=== PATIENT | male | born 1945 | race Caucasian/White ===

== ENCOUNTER 2018-03-27 06:57 | Day surgery (SDC) | payer MEDICARE ==
--- NOTE | 2018-03-24 17:13 | HP ---
CC: Dr. Adam; Dr. Loza * ADMISSION HISTORY AND PHYSICAL: DATE OF SURGERY/ADMISSION: 03/27/18 ATTENDING SURGEON: Tonny Jennings MD * (DICTATED BY SHELLI BAZZI) CHIEF COMPLAINT: Left inguinal hernia. HISTORY OF PRESENT ILLNESS: This is a 72-year-old patient referred by Dr. Adam for evaluation of a left inguinal hernia. The patient first noted some left groin swelling in November of this year. It seems to wax and wane, but particularly increased in relation to activity. He has occasional discomfort in the left groin, but nothing to suggest incarceration or strangulation. He has had some intermittent crampy abdominal pain at times, which is not clearly related to the hernia. He was seen by Dr. Adam in early February for one of these episodes. His lab work at that time showed a normal CBC, sed rate, and CRP. KUB of the abdomen showed moderate stools, but otherwise no abnormalities. He has had a couple of minor short-lived recurrences since then. He does have diverticulosis by prior CT. He was seen in the office by Dr. Jennings on 12/17/17, at which time exam confirmed the presence of a reducible nontender left inguinal hernia. There is no hernia noted on the right. Testes were described as normal. Dr. Jennings discussed with him the indications for repair, the methods thereof, the risks, benefits, and alternatives. The patient would like to proceed as scheduled with open repair of left inguinal hernia with mesh. PAST MEDICAL HISTORY: Osteoarthritis, low back pain, BPH, GERD, hypertension, type 2 diabetes, hyperlipidemia, obstructive sleep apnea (on CPAP). He has had 2 prior episodes of pericarditis, but no problems in recent years. PAST SURGICAL HISTORY: Previous surgeries include posterior cervical decompression, right knee meniscal repair, tonsillectomy remotely, ligation and stripping varicose veins in the left lower extremity. No surgical or anesthesia complications. CURRENT MEDICATIONS: 1. Invokana 100 mg once daily. 2. Lisinopril-hydrochlorothiazide 10-12.5 once daily. 3. Lansoprazole 30 mg once daily. 4. Atorvastatin 20 mg once daily. 5. Terazosin 5 mg and 2 mg 1 tablet each for a total of 7 mg once daily. 6. Viagra p.r.n. 7. Multivitamin once daily. 8. Glucosamine daily. DRUG ALLERGIES: AUGMENTIN (nausea), SULFA (unknown childhood reaction). FAMILY HISTORY: Negative for anesthesia problems, bleeding or clotting disorders. SOCIAL HISTORY: The patient is . 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 He is fairly active. He was a former smoker of 1 pack per week and quite at age 40. He drinks on average 2 drinks per day. He denies other recreational drug use. REVIEW OF SYSTEMS: General: No recent constitutional symptoms or acute illnesses. HEENT: No problems reported. Cardiovascular: No chest pain, palpitations, history of heart murmur. Respiratory: No history of asthma, chronic cough, or shortness of breath. GI: No problems reported. Colonoscopy done in 2013. : He is followed by Dr. Loza twice yearly and is treated for BPH. No additional problems reported. Endocrine: Type 2 diabetes. No history of thyroid dysfunction. Remainder of review of systems is negative. PHYSICAL EXAMINATION GENERAL: Well-nourished, well-developed male, in no acute distress. VITAL SIGNS: Height 67 inches, weight 193 pounds. Blood pressure 110/60, pulse 60, respirations 16. HEENT: Pupils are equal and round, reactive. EOMs intact. No conjunctival pallor. Oropharynx: Teeth in good repair. No intraoral lesions. NECK: No lymphadenopathy, thyromegaly, or masses. LUNGS: Clear to auscultation. No rales or wheezes. HEART: Regular rate and rhythm. No murmur noted. ABDOMEN: Soft, nontender to palpation. No palpable masses or organomegaly. Left inguinal hernia as per Dr. Jennings's exam. GENITALIA: There is some asymmetry between the testes, left larger than right, but without any discrete nodules or masses. The patient was not aware of any change. RECTAL: Not done. BACK: No spinous process or CVA tenderness. EXTREMITIES: No edema. NEUROLOGICAL: Grossly intact. SKIN: Warm and dry. No suspicious rashes or lesions noted. IMPRESSION: Left inguinal hernia. PLAN: Open repair left inguinal hernia with mesh. SHELLI BAZZI [id number]/[facility] #: [id number] [facility] CENTERMavis
[~2018-03-27 06:57] MED LIST: Acetaminophen TAB* 325 MG PO ONE; Buffered Lidocaine 0.9% SYRIN* 5 ML/SYR SYRINGE INTRADERM ONE; Gabapentin CAP(*) 300 MG PO ONE
[2018-03-27] MEDS ORDERED: Acetaminophen TAB* 325 MG ONE (07:35)
[2018-03-27] MEDS ORDERED: Gabapentin CAP(*) 300 MG ONE (07:35)
[2018-03-27] MEDS ORDERED: Morphine VIAL* 10 MG/ML 1 ML VIAL ONE ×2 (07:35→08:12)
[2018-03-27] MEDS ORDERED: ceFAZolin 2 GM PREMIX in ORs 2 GM/50 ML BAG IVPB ONE (07:35)
[2018-03-27] MEDS ORDERED: PROCHLORPERAZINE INJ 5 MG/ML 2 ML VIAL IV PRN (08:01)
[2018-03-27] MEDS ORDERED: Levalbuterol 0.63MG/3ML NEB* UNIT OF USE INH PRN (08:01)
[2018-03-27] MEDS ORDERED: Naloxone* 0.4 MG/ML 1 ML VIAL IV PRN (08:01)
[2018-03-27] MEDS ORDERED: fentaNYL* 50 MCG/ML 2 ML VIAL (100 MCG VIAL) IV PRN (08:01)
[2018-03-27] MEDS ORDERED: HYDROcodone/ACETAMIN 5-325 MG* 1 TAB PO PRN (08:01)
[2018-03-27] MEDS ORDERED: DiMENhydriNATE IV* 50 MG/ML VIAL IV PUSH PRN (08:01)
[2018-03-27] MEDS ORDERED: Ondansetron INJ* 2 MG/ML VIAL IV PRN (08:01)
[2018-03-27] MEDS ORDERED: Famotidine IV* 10 MG/ML 2 ML (20 mg) ONE (08:16)
[2018-03-27] MEDS ORDERED: fentaNYL* 50 MCG/ML 2 ML VIAL (100 MCG VIAL) ONE (08:16)
[2018-03-27] MEDS ORDERED: Midazolam* 1 MG/ML 2 ML VIAL (2 MG) ONE (08:16)
[2018-03-27] MEDS ORDERED: Lidocaine 1% INJ* 10 MG/ML 30 ML SDV ONE (09:21)
[2018-03-27] MEDS ORDERED: Bupivacaine 0.5% PF 10 ML VIAL INJ ONE (09:21)
[2018-03-27] MEDS ORDERED: Bupivacaine 0.5% W/EPI SDV* 30 ML VIAL ONE (09:22)
[2018-03-27] MEDS ORDERED: diPHENhydraMINE IV* 50 MG/ML 1 ml VIAL (BENADRYL) ONE (09:22)
[2018-03-27] MEDS ORDERED: KETAMINE HCL* 50 MG/ML 10 ML VIAL ONE (09:22)
[2018-03-27] MEDS ORDERED: Propofol* 10 MG/ML 20 ML BTL ONE (09:44)
[2018-03-27] MEDS ORDERED: Dexamethasone IV* 4 MG/ML 1 ML (4 MG) ONE (09:44)
[2018-03-27 10:56] VITALS: BP 130/67
--- NOTE | 2018-03-27 11:18 | OP ---
CC: Dr. Jennings; Dr. Adam; Dr. Loza. OPERATIVE REPORT: DATE OF OPERATION: 03/27/18 DATE OF : 47 SURGEON: Tonny Jennings MD. DESIGNER AND PATTERNMAKER: None. ANESTHESIOLOGIST: Dr. Hart. ANESTHESIA: LMAC anesthesia. PRE-OP DIAGNOSIS: Left inguinal hernia. POST-OP DIAGNOSIS: Left inguinal hernia. OPERATIVE PROCEDURE: Open repair left inguinal hernia with mesh. DESCRIPTION OF PROCEDURE: The patient was supine on the operative table. After adequate intravenous sedation, compression stockings, Carole Hugger warmer, and intravenous antibiotics, the left groin was clipped and prepped with antiseptic and draped in a sterile fashion. Local infiltrative of anesthes ia was administered and approximately a 2.5-inch incision was created, dissection carried down to the external oblique, which was opened in the direction of its fibers. Cord structures were encircled w ith a Jitendra drain, tented upward. There was fairly large indirect sac, which was dissected free fr om the cord structures and reduced. The cone mesh plug was placed in the internal ring, sutured ther e with 2-0 Vicryls. A second piece of mesh was placed over the inguinal floor, sutured at the tuberc le, tails were split, brought around the cord structures and tacked down laterally. External oblique was closed over top with 2-0 Vicryls, Neville's with 3-0 Vicryl, skin with 4-0 Prolene followed by corrine rile dressing. He tolerated the procedure well, was awakened and brought to Recovery in good conditi on. No complications. No drains. No pathologic specimens. Sponge, instrument counts correct. Sheree mated blood loss less than 10 mL. [id number]/[facility] #: [id number]
== END 2018-03-27 11:12 | disposition home or self-care (01) ==
LOC: OR 06:57
PROVIDERS: ATTEND Surgery
DX: K40.90 Unilateral inguinal hernia, without obstruction or gangrene, not specified as recurrent (principal); G47.33 Obstructive sleep apnea (adult) (pediatric); E11.9 Type 2 diabetes mellitus without complications; I10 Essential (primary) hypertension; K21.9 Gastro-esophageal reflux disease without esophagitis; Z79.84 Long term (current) use of oral hypoglycemic drugs
CPT/HCPCS: A9270-GY; C1781; J0690; J1100; J1200; J2250; J2270; J2704; J3010

== ENCOUNTER 2019-05-25 09:30 | Day surgery (SDC) | payer MEDICARE ==
[~2019-05-25 09:30] MED LIST changes: -Acetaminophen TAB* 325 MG PO ONE; -Buffered Lidocaine 0.9% SYRIN* 5 ML/SYR SYRINGE INTRADERM ONE; +Buffered Lidocaine 1% SYRIN* 1 ML/SYRINGE INTRADERM ONE; +Famotidine IV* 10 MG/ML 2 ML (20 mg) IV ONE; -Gabapentin CAP(*) 300 MG PO ONE; +Lactated Ringers 1000 ML Bag* 1,000 ML IV SCH
[2019-05-25] MEDS ORDERED: ceFAZolin 2 GM PREMIX in ORs 2 GM/50 ML BAG ONE (10:05)
[2019-05-25] MEDS ORDERED: Famotidine IV* 10 MG/ML 2 ML (20 mg) ONE (10:05)
[2019-05-25] MEDS ORDERED: Midazolam* 1 MG/ML 5 ML VIAL (5 MG) ONE (10:49)
[2019-05-25] MEDS ORDERED: Bupivacaine 0.25% SDV* 30 ML ONE (11:11)
[2019-05-25] MEDS ORDERED: fentaNYL* 50 MCG/ML 2 ML VIAL (100 MCG VIAL) ONE (11:57)
[2019-05-25] MEDS ORDERED: Propofol* 10 MG/ML 20 ML BTL ONE (12:30)
[2019-05-25] MEDS ORDERED: Dexamethasone IV* 4 MG/ML 1 ML (4 MG) ONE (12:30)
[2019-05-25] MEDS ORDERED: Ketorolac INJ* 30 MG/ML 1 ML VIAL ONE (12:30)
[2019-05-25] MEDS ORDERED: Ondansetron INJ* 2 MG/ML VIAL ONE (12:30)
[2019-05-25] MEDS ORDERED: Lidocaine 2% PF * 5 ML VIAL ONE (12:30)
[2019-05-25] MEDS ORDERED: Glycopyrrolate IV* 0.2 MG/ML 1 ML VIAL ONE (12:30)
[2019-05-25] MEDS ORDERED: Atropine 1MG/ML INJ* 1 ML VIAL ONE (12:57)
[2019-05-25] MEDS ORDERED: EPHEDrine (Pressors)* 50 MG/ML VIAL ONE (12:57)
[2019-05-25] MEDS ORDERED: Acetaminophen TAB* 325 MG PO PRN (14:01)
[2019-05-25] MEDS ORDERED: Naloxone* 0.4 MG/ML 1 ML VIAL IV PRN (14:01)
[2019-05-25] MEDS ORDERED: oxyCODONE TAB* 5 MG TAB ONE (14:13)
[2019-05-25] MEDS ORDERED: Acetaminophen TAB* 325 MG ONE (14:13)
[2019-05-25] MEDS: oxyCODONE TAB* 5 MG TAB PO PRN ×2 (14:15→14:16)
[2019-05-25] MEDS ORDERED: DiMENhydriNATE IV* 50 MG/ML VIAL ONE (15:21)
[2019-05-25 16:22] VITALS: BP 126/70
--- NOTE | 2019-05-25 21:02 | CONS ---
CC: Dr. Esau Adam * CONSULTATION REPORT: DATE OF CONSULT: 05/25/19 INDICATION FOR CONSULTATION: Bradycardia in the postop area. HISTORY OF PRESENT ILLNESS: The patient is a 74-year-old gentleman with a history of hypertension, sleep apnea, BPH, gastroesophageal reflux disease, hyperlipidemia, type 2 diabetes, who came to the hospital for a hand surgery. The patient was evaluated preop by Jaret Allen NP. At that time, he had an EKG , which showed sinus bradycardia at 50 beats per minute, but he did not have any cardiac symptoms. The patient was brought to the operating room by Dr. Mooney. His initial telemetry strip showed sinus bradycardia at 40 beats per minute. During the surgery, he did have an episode of heart rate of 35 beats per minute that appeared to be junctional. There was no evidence of P waves on the telemetry strip. In the recovery area, the patient had a telemetry strip showed normal sinus rhythm at 50 beats per minute. During the procedure, the patient had no other problems. His blood pressure was stable throughout. The surgery was successful and had no problems. The patient was stable in the recovery area where I was asked to see the patient. I was then able to have a conversation with the patient as he had just had anesthesia and was unable to answer any significant questions. In reviewing his notes in the office computer , there was no evidence of episodes of syncope or near syncope. PAST MEDICAL HISTORY: Again significant for sleep apnea, BPH, low back pain, gastroesophageal reflux disease, hypertension, diabetes. PAST SURGICAL HISTORY: Cervical spine surgery, tonsillectomy, knee surgery. OUTPATIENT MEDICATIONS: 1. CPAP machine. 2. Invokana 100 mg daily. 3. Lisinopril/hydrochlorothiazide 10/12.5 mg a day. 4. Lansoprazole 30 mg a day. 5. Atorvastatin 20 mg a day. 6. Viagra 50 mg as needed. 7. Terazosin 7 mg a day. 8. Multivitamin a day. ALLERGIES: AUGMENTIN and SULFA MEDICATIONS. FAMILY HISTORY: Father of suicide. Mother of interstitial lung disease. One sister of pulmonary fibrosis. SOCIAL HISTORY: He is retired. He is a former smoker, he quit at the age 40. Rare alcohol intake. He tries to exercise regularly with walking. REVIEW OF SYSTEMS: Review of systems could not be done as the patient was just coming out of anesthesia. PHYSICAL EXAM: Height is 5 feet 9 inches, weight is 201 pounds, temperature 97.9, heart rate is 40, blood pressure 130/75, respiratory rate is 16, oxygen saturation 97% on room air. Sclerae anicteric. Oropharynx is pink without erythema. Carotids are 2+ without bruits. JVD is normal. Thyroid is normal. Cardiac Exam: S1, S2 without any murmurs, rubs or gallops. Lungs are clear to auscultation bilaterally. There is no dullness to percussion. Abdomen is soft , nontender, nondistended with normoactive bowel sounds. Extremities show minimal edema. He has 2+ pulses throughout. The patient is awake, alert, but unable to answer questions as he is postanesthesia. DIAGNOSTIC STUDIES/LAB DATA: Again, telemetry in the recovery area showed a sinus rhythm at 50 beats per minute. Again, an EKG from 05/04/19 showed normal sinus rhythm at 50 beats per minute otherwise unremarkable. Laboratory studies from November 2018 shows chemistry is within normal limits. BUN 13, creatinine 0.7. AST and ALT are normal. Total cholesterol 168. LDL cholesterol 102. CBC within normal limits. IMPRESSION: The patient is a 74-year-old gentleman with a history of hypertension, diabetes, sleep apnea, who came to hospital because of hand surgery. During the surgery, he did have bradycardia down to 30 beats per minute. He did not have any symptoms. His blood pressure was stable throughout. The patient did have a cardiac catheterization in 2006, which showed normal coronary arteries and normal left ventricular function. PLAN/RECOMMENDATIONS: For now, my recommendation is that the patient continue with his recovery. I do not think any cardiac testing is necessary at this time. The patient does not have any documented symptoms of bradycardia and no episodes of syncope. I will see the patient in followup as an outpatient, perhaps I will get an echocardiogram and a 30 day monitor to evaluate for bradycardia. I do not think any medication changes are necessary. [id number]/[facility] #: [id number] MTDD
--- NOTE | 2019-05-26 03:15 | OP ---
DATE OF OPERATION: 05/25/19 - [facility] DATE OF : 47 SURGEON: Stan Mock MD FISCAL ACCOUNTING CLERK: SHELLI Cano ANESTHESIOLOGIST: Dr. Mooney. ANESTHESIA: General. PRE-OP DIAGNOSES: 1. 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 2. Hyperextension laxity right thumb metacarpophalangeal joint at about 60 degrees of hyperextension. POST-OP DIAGNOSES: 1. 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 2. Hyperextension laxity right thumb metacarpophalangeal joint at about 60 degrees of hyperextension. OPERATIVE PROCEDURE: 1. Right thumb carpometacarpal arthroplasty with trapeziectomy. 2. Distally based flexor carpi radialis tendon transfer for thumb suspension and tendon interposition. 3. Right thumb metacarpophalangeal joint volar capsulodesis. INDICATIONS: Mr. Salas has severe end-stage arthritis. He has MCP joint hyperextension laxity. The thumb is very painful. We talked about treatment options, risks and benefits. He wanted to proceed with surgery. ESTIMATED BLOOD LOSS: 2 mL. COMPLICATIONS: None. FINDINGS: See above and below. DESCRIPTION OF PROCEDURE: Mr. Salas was seen in the preoperative holding area. The correct side, site, and procedure were identified. We came back to the operating room. The arm was prepped and draped in the usual fashion and time -out was performed. The arm was exsanguinated with the Esmarch and the tourniquet was inflated. I made a 2-to 3-cm incision over the dorsal radial aspect of the thumb metacarpal base and CMC joint. Dissection was carried down. The radial artery was mobilized and protected. Subperiosteal and capsular flaps were raised to expose the trapezium. The margins of the trapezium were released in piecemeal fashion. I then examined the scaphotrapezoid joint, that looked okay. I did take some time as able to free up the interval between the first and second metacarpal base. I then went ahead and made a bone tunnel from the dorsal radial metacarpal base extending out the volar ulnar articular surface. I then turned my attention to the tendon transfer. I made three 1 cm transverse incisions over the FCR tendon sheath, first is proximal to the wrist flexion crease, each proximal incision was made about 7 or 8 cm proximal to the left. The sheath was released underneath the skin. The tendon was brought up from the distal wound. It was split longitudinally. A 26-gauge wire was placed in the split. Wire was then pulled up in the most proximal wound, splitting the tendon and releasing half of the tendon at the musculotendinous junction. A two 26-gauge wires were used to shuttle the free tail of the tendon down into the metacarpal base wound. This brought through the bone tunnel back around intact limb and then maximum tension was set. The tendon transfer was secured with 3 [id number] 3- 0 Ethibond sutures. The first sewing off 3 limbs of the tendon, transferred together. The last 2 sewing intact limb to intact limb. At this point, there was excellent interposition. The tendon had good motion. There was full radial and palmar abduction. I did not see the need for any allograft interposition because it looked so nice. The remainder of the tendon tail was rolled up and secured as above with the 3- 0 Ethibond suture and then placed as an interposition proximal to the base of the metacarpal. The capsule was closed with 4-0 Vicryl suture. Skin was closed with 4-0 nylon suture. I then turned our attention to the metacarpophalangeal joint capsulodesis. A V - shaped incision was made over the MCP joint and a radially based flap was raised. The skin flap was sewn back. The A1 zechariah was incised longitudinally. The tendon was retracted laterally. Radially, the volar plate was raised as the distally based U flap. Once I fully mobilized that, the radial sesamoid was very degenerative, so I went ahead and excised that. I then placed 2 DePuy mini Mitek anchors in the metacarpal neck. The 2-0 Ethibond sutures of those were used to whipstitch into the volar plate. I then tied them down and got excellent correction with the 30-degree block to MCP joint extension. At this point, everything was looking very good. The wound was irrigated out. Skin was closed with 4-0 nylon suture. A 0.25% Marcaine was placed. Wounds were dressed and a thumb spica splint was applied keeping the MCP joint in flexion. He was taken to the recovery room in stable condition. [id number]/[facility] #: [id number] [facility]
== END 2019-05-25 16:20 | disposition home or self-care (01) ==
LOC: OR 09:30
PROVIDERS: ATTEND Orthopaedic Surgery Hand Surgery
DX: M18.31 Unilateral post-traumatic osteoarthritis of first carpometacarpal joint, right hand (principal); M24.241 Disorder of ligament, right hand; I10 Essential (primary) hypertension; E78.5 Hyperlipidemia, unspecified; M19.90 Unspecified osteoarthritis, unspecified site; G47.33 Obstructive sleep apnea (adult) (pediatric); E11.9 Type 2 diabetes mellitus without complications; K21.9 Gastro-esophageal reflux disease without esophagitis; N40.0 Benign prostatic hyperplasia without lower urinary tract symptoms; Z87.891 Personal history of nicotine dependence
CPT/HCPCS: 88304; 88311; A9270-GY; C1713; J0461; J0690; J1100; J1240; J1885; J2250; J2405; J2704; J3010; J3490

== ENCOUNTER 2019-07-13 07:57 | Observation (INO) | payer MEDICARE ==
[2019-07-13] MEDS ORDERED: ceFAZolin VIAL 1 GM in NS *SYRINGE * * 10 ML ONE (09:00)
[2019-07-13] MEDS ORDERED: ceFAZolin* 2 GM* ONE DOSE (Duplex) IVPB (09:00)
[2019-07-13] MEDS ORDERED: Flumazenil* 0.1 MG/ML 5 ML MDV ONE (09:05)
[2019-07-13] MEDS ORDERED: Naloxone* 0.4 MG/ML 1 ML VIAL ONE (09:05)
[2019-07-13] MEDS ORDERED: fentaNYL* 50 MCG/ML 2 ML VIAL (100 MCG VIAL) ONE (09:05)
[2019-07-13] MEDS ORDERED: Lidocaine 1% INJ* 10 MG/ML 30 ML SDV ONE (09:05)
[2019-07-13] MEDS ORDERED: Midazolam* 1 MG/ML 5 ML VIAL (5 MG) ONE ×2 (09:05→09:29)
[2019-07-13] MEDS: Acetaminophen TAB* 325 MG PO PRN (14:40)
[2019-07-13] MEDS: ceFAZolin VIAL(*) 1 GM in NS 0.9% 50 ML* 50 ML IVPB SCH (16:04)
[2019-07-13] MEDS ORDERED: Zolpidem TAB* 5 MG PO PRN (16:23)
--- NOTE | 2019-07-13 18:54 | OP ---
DATE OF OPERATION: 07/13/19 - ROOM #447 DATE OF : 47 ANESTHESIA: Local anesthesia with conscious sedation. PRE-OP DIAGNOSIS: Bradycardia. POST-OP DIAGNOSIS: Bradycardia. OPERATIVE PROCEDURE: Dual-chamber pacemaker implantation. ESTIMATED BLOOD LOSS: Nil. COMPLICATIONS: None. INDICATIONS: The patient is a 74-year-old gentleman with a diagnosis of bradycardia. He had a significant episode of bradycardia at a recent operative procedure. On Holter monitor, he had significant bradycardia. Permanent pacemaker was recommended. DESCRIPTION OF PROCEDURE: The patient was in a fasting state. Informed consent had been obtained prior to the procedure. All labs were reviewed. The patient was placed supine on the procedure table. His left pectoral area was cleaned and draped in the usual fashion. 1% lidocaine was used for local anesthesia. Under ultrasound guidance, the axillary vein was entered via Seldinger technique and a guidewire was placed. A second guidewire was placed in the same technique. A 3.5- cm incision was made in the pectoral area. Blunt dissection was carried down to the pectoral fascia and a pocket was fashioned for the pacemaker. Over the guidewire, a 7-Guatemalan sheath introducer was placed through which a right ventricular lead was advanced to the RV septum. The right ventricular lead is a Medtronic model 5076, serial number [id number] that had an R-wave sensitivity of 6.3, impedance 770 ohms, threshold 0.6 volts at 0.5 milliseconds. Right ventricular lead was advanced and was sutured to the pectoral fascia. Over the second guidewire, a 7-Gu[place]alan sheath introducer was placed, through which a right atrial lead was advanced the high right atrium. The right atrial lead is a Medtronic model 5076, serial number [id number], had a P-wave sensitivity of 4.7, impedance of 716 ohms, and threshold 0.8 volts at 0.5 milliseconds. Atrial lead was sutured to the pectoral fascia. The pocked was flushed. A generator was attached appropriately to the atrial and ventricular leads. The generator is a Medtronic model W1DR01, serial number [id number]. The device was placed in the pocket. The surgical incision was closed in 3 layers. [id number]/[facility] #: [id number] [facility]ALTH[facility]
[2019-07-13] MEDS ORDERED: Atorvastatin* 20 MG TAB PO SCH (21:00)
[2019-07-13] MEDS ORDERED: Terazosin CAP* 5 MG PO SCH (21:00)
[2019-07-13] MEDS ORDERED: Lansoprazole SOLUTAB* 30 MG PO SCH (21:00)
[2019-07-13] MEDS: oxyCODONE/Acetamin 5/325 MG* TAB PO PRN (22:36)
[2019-07-14] MEDS: ceFAZolin VIAL(*) 1 GM in NS 0.9% 50 ML* 50 ML IVPB SCH ×2 (01:44→08:39)
[2019-07-14] MEDS: oxyCODONE/Acetamin 5/325 MG* TAB PO PRN (03:12)
[2019-07-14 07:44] VITALS: BP 129/73
[2019-07-14] MEDS: Acetaminophen TAB* 325 MG PO PRN (08:41)
[2019-07-14] MEDS ORDERED: Hydrochlorothiazide TAB* 25 MG PO SCH (09:00)
[2019-07-14] MEDS ORDERED: Canagliflozin (NF) 100 MG TAB PO SCH (09:00)
[2019-07-14] MEDS ORDERED: Lisinopril TAB* 10 MG PO SCH (09:00)
[2019-07-14] MEDS ORDERED: Canagliflozin (NF) 300 MG TAB PO SCH (09:00)
--- NOTE | 2019-07-14 13:15 | DS ---
CC: Dr. Esau Adam* DATE OF ADMISSION: 07/13/2019. DATE OF DISCHARGE: 07/14/2019. ATTENDING METAL SPRAYER PRODUCTION: Dr. Kareem Velasquez* (dictated by Sandrine Rosales NP). PRIMARY CARE PHYSICIAN: Dr. Esau Adam. PRIMARY METAL SPRAYER PRODUCTION: Dr. Kareem Velasquez. ADMITTING DIAGNOSES: 1. Bradycardia, on recent Holter. The patient was in sinus bradycardia, 28 beats per minute at 11:00 a.m. in the morning and 38 beats per minute at 6:30 p.m. Here for elective dual chamber pacemaker implantation with Dr. Kareem Velasquez. 2. Junctional bradycardia postoperatively. 3. Sleep apnea. 4. Hyperlipidemia. 5. Type 2 diabetes mellitus. 6. History of hypertension. DISCHARGE DIAGNOSES: 1. Sinus bradycardia with abnormal Holter revealing daytime bradycardia in high 20s to mid 30s, here for elective dual chamber pacemaker implantation. The patient underwent successful DCPPM implant 07/13/2019. 2. History of hypertension. 3. History of dyslipidemia. 4. Type 2 diabetes mellitus. PROCEDURE PERFORMED: The patient underwent a successful dual chamber pacemaker implantation on 07/13/[address] Kareem Velasquez. The right ventricular lead is Medtronic model 5076, serial number [id number]. The right atrial lead is Medtronic model 5076, serial number [id number]. Generator is Medtronic model W1DR01, serial number [id number]. COMPLICATIONS: None thus far. COURSE OF HOSPITAL STAY: This is a pleasant, 74-year-old male patient who follows Dr. Kareem Velasquez from our practice. He was initially seen in consultation due to postoperative junctional bradycardia earlier this year. Heart rate in the 30s. He had follow-up outpatient Holter monitor mid May which revealed sinus bradycardia with no arrhythmias. However, he did have sinus bradycardia 28 beats per minute 11:00 in the morning and 38 beats per minute at 6:30 at night. Subsequently, risks versus benefits pacemaker implantation was reviewed with the patient at his office appointment on 2019. The patient opted to proceed with pacemaker implantation. Prior to presenting to [facility] on 07/13/2019, he had outpatient blood work obtained on 07/01/2019. At that time, white count was 6.3, hemoglobin 15.5, hematocrit 174, sodium 136, potassium 4.1, creatinine 0.92. He underwent the above mentioned procedure post procedure and was monitored on [facility] overnight. He has had no events. He has been up and ambulating to the bathroom with no complaints. Most recent set of vital signs: Temperature 97.7, pulse 60, respirations 16, oxygenation 94 percent on room air, blood pressure 129/73. There is no morning blood work to be reviewed. He did have a chest x-ray this morning that ruled out pneumothorax. There was no acute cardiopulmonary process appreciated. This mornings LINQ device interrogation was also reviewed. There was no AT/AF, no VT. Right ventricle pacing threshold 0.5 volts at 0.4 msec bipolar. Normal function. Auto RA threshold not available. Left anterior device site was examined. There is no evidence of pocket hematoma , inflammation, or infection. Nontender to palpation. He continues to deny chest pain or shortness of breath. Wound care was reviewed with the patient. He is stable and ready for discharge. DISPOSITION: To be discharged home in stable condition. DISCHARGE MEDICATIONS: 1. Lipitor 20 mg a day. 2. Clindamycin 150 mg p.o. t.i.d. for 3 days then stop. 3. Lisinopril with HCTZ 10/12.5 mg a day. 4. Terazosin 5 mg p.o. at bedtime. 5. Invokana 300 mg daily. 6. Tylenol as directed. DISCHARGE RESTRICTIONS IN REGARDS TO ACTIVITY: The patient was advised he may shower tomorrow, 07/15/2019, but he is not to soak left anterior device site wound or take a bath/swim. He is aware to avoid lifting left arm above shoulder or reaching behind him for a total of six weeks. He is aware to not lift more than five pounds until further directed. He is to not drive until further directed in follow-up. He is to wear left arm immobilizer as directed for six weeks. WOUND CARE: I have reviewed extensively the importance of changing wound dressing daily until Saturday and then leaving open to air. He is aware to monitor for any signs or symptoms of pocket hematoma or infection and to contact our practice should they occur. FOLLOW-UP APPOINTMENT: The patient is to follow-up with primary physician, Dr. Esau Adam, in seven to ten days. Follow-up with Dr. Kareem Velasquez on 2019 at 1:[address] Kareem Velasquez has personally seen and examined the patient and agrees with the above assessment and plan. TIME SPENT: Total discharge time was 30 minutes. SANDRINE ROSALES NP [id number]/[facility] #: [id number] [facility]
== END 2019-07-14 11:30 | disposition home or self-care (01) ==
LOC: CHICATH 07:57 → MEDTELE 10:07
PROVIDERS: ADMIT Specialist; ATTEND Specialist
DX: R00.1 Bradycardia, unspecified (principal); G47.30 Sleep apnea, unspecified; I10 Essential (primary) hypertension; K21.9 Gastro-esophageal reflux disease without esophagitis; M54.5 Low back pain; N40.0 Benign prostatic hyperplasia without lower urinary tract symptoms; M19.90 Unspecified osteoarthritis, unspecified site; E78.5 Hyperlipidemia, unspecified; E11.9 Type 2 diabetes mellitus without complications; Z79.899 Other long term (current) drug therapy
CPT/HCPCS: 33208; 71045; 71046; 93005; 99156; 99157; A9270-GY; C1785; C1892; C1898; G0378; J0690; J2250; J2310; J3010